=== PATIENT | male | born 1990 | race American Indian/Alaskan Native ===

== ENCOUNTER 2021-05-11 14:23 | Emergency (ER) | payer OTHER ==
[~2021-05-11] VITALS: Ht 188 cm; Wt 76.2 kg
[2021-05-11 14:31] VITALS: BP 140/92
[2021-05-11] MEDS ORDERED: metoclopramide 5 mg/ml inj IV ONE (15:35)
[2021-05-11] MEDS ORDERED: normal saline 1000ML IV soln IVB ONE (15:35)
[2021-05-11] MEDS ORDERED: ketorolac trometh. 30mg/ml inj. IV ONE (16:15)
[2021-05-11] MEDS ORDERED: ketorolac tromethamine 15mg/ml inj. IV ONE (16:20)
== END 2021-05-11 17:03 | disposition home or self-care (01) ==
LOC: ER 14:24
DX: G44.209 Tension-type headache, unspecified, not intractable (principal); R11.2 Nausea with vomiting, unspecified; K21.9 Gastro-esophageal reflux disease without esophagitis; Z72.89 Other problems related to lifestyle
CPT/HCPCS: 96361; 96374; 96375; 99284; J1885; J2765; J7030